=== PATIENT | male | born 1945 | race Caucasian/White ===

== ENCOUNTER 2018-11-28 09:58 | Emergency (ER) | payer MEDICARE ==
--- NOTE | 2018-11-28 10:12 | PHYS DOC ---
Past Medical History Past Medical History: CAD, Hypertension Past Surgical History: Coronary Bypass Surgery Additional Past Surgical Histo: AORTIC VALVE PIG VALVE Adult General Chief Complaint Chief Complaint: NEURO SYMPTOMS/DEFICITS HPI HPI Patient is a 73 year old was brought here by EMS for evaluation of slurred speech, right side weakness, started at 9:30 am. Patient woke up this AM, was normal. He was outside walking the dog, he was holding on something then dropped it. His asked him what happened and he could not answer her. His speech was slurred. EMS was called to take him here for evaluation. Patient is on aspirin daily. He had aortic valve replacement, pig valve, 8 months ago. No recent operation, no vomiting, blood, no rectal bleeding. Review of Systems Review of Systems Constitutional: Denies fever or chills [] Eyes: Denies change in visual acuity, redness, or eye pain [] HENT: Denies nasal congestion or sore throat [] Respiratory: Denies cough or shortness of breath [] Cardiovascular: No additional information not addressed in HPI [] GI: Denies abdominal pain, nausea, vomiting, bloody stools or diarrhea [] : Denies dysuria or hematuria [] Musculoskeletal: Denies back pain or joint pain [] Integument: Denies rash or skin lesions [] Neurologic: NO HEADACHE. POSITIVE FOR RIGHT SIDE WEAKNESS, CONFUSION, FACIAL NUMBNESS, NOT ABLE TO SPEAK NORMALLY. Endocrine: Denies polyuria or polydipsia [] All other systems were reviewed and found to be within normal limits, except as documented in this note. Current Medications Current Medications Current Medications Medications (Trade) Dose Ordered Sig/Mara Start Time Stop Time Status Last Admin Dose Admin Alteplase, Recombinant 54.3 ml @ 54.3 mls/hr Q1H 11/28/18 10:56 11/28/18 11:55 Info (CONTRAST GIVEN -- Rx MONITORING) 1 each PRN DAILY PRN 11/28/18 10:45 11/30/18 10:44 Iohexol (Omnipaque 300 Mg/ml) 75 ml 1X ONCE 11/28/18 10:30 11/28/18 10:31 DC 11/28/18 10:55 75 ML Labetalol HCl (Normodyne Iv Push) 10 mg PRN Q10MIN PRN 11/28/18 10:45 Sodium Chloride 50 ml @ 0 mls/hr 1X ONCE 11/28/18 11:45 11/28/18 11:46 Allergies Allergies Allergies Coded Allergies Type Severity Reaction Last Updated Verified No Known Drug Allergies 11/28/18 No Physical Exam Physical Exam Constitutional: Well developed, well nourished, MILD acute distress, non-toxic appearance. [] HENT: Normocephalic, atraumatic, bilateral external ears normal, oropharynx moist, no oral exudates, nose normal. [] Eyes: PERRLA, EOMI, conjunctiva normal, no discharge. [] Neck: Normal range of motion, no tenderness, supple, no stridor. [] Cardiovascular:Heart rate regular rhythm, no murmur [] Lungs & Thorax: Bilateral breath sounds clear to auscultation [] Abdomen: Bowel sounds normal, soft, no tenderness, no masses, no pulsatile masses. [] Skin: Warm, dry, no erythema, no rash. [] Back: No tenderness, no CVA tenderness. [] Extremities: No tenderness, no cyanosis, no clubbing, ROM intact, no edema. [] Neurologic: Alert , awake. He was confused, not able to move right side, does not follow command, right side facial droop. Psychologic: Affect normal, judgement normal, mood normal. [] Current Patient Data Lab Values Laboratory Tests Test 11/28/18 10:09 11/28/18 10:16 White Blood Count 6.5 x10^3/uL (4.0-11.0) Red Blood Count 4.59 x10^6/uL (4.30-5.70) Hemoglobin 13.3 g/dL (13.0-17.5) Hematocrit 38.8 % (39.0-53.0) L Mean Corpuscular Volume 85 fL (79-100) Mean Corpuscular Hemoglobin 29 pg (25-35) Mean Corpuscular Hemoglobin Concent 34 g/dL (31-37) Red Cell Distribution Width 13.3 % (11.5-14.5) Platelet Count 192 x10^3/uL (140-400) Neutrophils (%) (Auto) 53 % (31-73) Lymphocytes (%) (Auto) 34 % (24-48) Monocytes (%) (Auto) 10 % (0-9) H Eosinophils (%) (Auto) 2 % (0-3) Basophils (%) (Auto) 1 % (0-3) Neutrophils # (Auto) 3.5 x10^3uL (1.8-7.7) Lymphocytes # (Auto) 2.2 x10^3/uL (1.0-4.8) Monocytes # (Auto) 0.6 x10^3/uL (0.0-1.1) Eosinophils # (Auto) 0.2 x10^3/uL (0.0-0.7) Basophils # (Auto) 0.0 x10^3/uL (0.0-0.2) Prothrombin Time 14.6 SEC (11.7-14.0) H Prothrombin Time INR 1.2 (0.8-1.1) H PTT 28 SEC (24-38) Sodium Level 143 mmol/L (136-145) Potassium Level 3.8 mmol/L (3.5-5.1) Chloride Level 106 mmol/L (98-107) Carbon Dioxide Level 29 mmol/L (21-32) Anion Gap 8 (6-14) 18 mmol/L (6-14) H Blood Urea Nitrogen 16 mg/dL (8-26) Creatinine 1.1 mg/dL (0.7-1.3) Estimated GFR (Cockcroft-Gault) 65.8 BUN/Creatinine Ratio 15 (6-20) Glucose Level 102 mg/dL (70-99) H 101 mg/dL (70-99) H Calcium Level 9.1 mg/dL (8.5-10.1) Total Bilirubin 1.0 mg/dL (0.2-1.0) Aspartate Amino Transferase (AST) 24 U/L (15-37) Alanine Aminotransferase (ALT) 26 U/L (16-63) Alkaline Phosphatase 82 U/L (46-116) Troponin I Quantitative < 0.017 ng/mL (0.000-0.055) Total Protein 6.5 g/dL (6.4-8.2) Albumin 3.6 g/dL (3.4-5.0) Albumin/Globulin Ratio 1.2 (1.0-1.7) POC Hemoglobin 12.2 g/dL (14-18) L POC Hematocrit 36 % (37-52) L POC Sodium 143 mmol/L (135-145) POC Potassium 3.7 mmol/L (3.5-5.0) POC Chloride 105 mmol/L (98-110) POC Total CO2 25 mmol/L (23-32) POC Blood Urea Nitrogen 15 mg/dL (8-26) POC Creatinine 0.9 mg/dL (0.5-1.4) POC Ionized Calcium (Roverto) 1.19 mmol/L (1.13-1.32) Laboratory Tests 11/28/18 10:09 Laboratory Tests 11/28/18 10:09 11/28/18 10:16 EKG EKG EKG: RATE OF 70 BPM, NO STEMI. SINUS RHYTHM. Radiology/Procedures Radiology/Procedures [][facility] [address] [place], [place] [id number] IMAGING REPORT Signed PATIENT: MARNIE VALLES ACCOUNT: [id number] : 1945 LOCATION: ER AGE: 73 SEX: M EXAM STATUS: REG ER ORD. PHYSICIAN: SADIE FLYNN DO REASON: code stroke PROCEDURE: CT CODE STROKE HEAD WO CT CODE STROKE HEAD WO History: Expressive aphasia Comparison: None. Technique: Noncontrast CT imaging was performed of the head. Exposure: One or more of the following individualized dose reduction techniques were utilized for this examination: 1. Automated exposure control 2. Adjustment of the mA and/or kV according to patient size 3. Use of iterative reconstruction technique. Findings: No acute extra-axial or parenchymal hemorrhage is identified. There is no significant intra-axial mass effect, midline shift, or extra-axial fluid collection. The mak-white differentiation of the major vascular territories is preserved. Ventricular size is within normal limits. There is mumk-to-whtedfmf supratentorial atrophy somewhat greater of the frontal lobes. The mastoid air cells and the visualized paranasal sinuses are aerated. No acute calvarial abnormality is identified. There is some hyperdensity of the left middle cerebral artery such as of the M2 segments. There is atherosclerotic calcification bilateral carotid siphons. Impression: 1. There is no evidence of acute intracranial hemorrhage. There is some hyperdensity in the distribution of left middle cerebral artery, could be due to thromboembolism. FOR INTERNAL CODING PURPOSES Critical result: Findings discussed with SADIE FLYNN at 11/28/2018 10:05 AM. RESULT CODE: (C) [facility] [address] [place] [address] IMAGING REPORT Signed PATIENT: MARNIE VALLES ACCOUNT: [id number] : 1945 LOCATION: ER AGE: 73 SEX: M EXAM STATUS: REG ER ORD. PHYSICIAN: SADIE FLYNN DO REASON: SLURRED SPEECH, EXPRESSIVE APHASIA, RIGHT SIDE WEAKNESS PROCEDURE: CTA HEAD/NECK - CODE STROKE CTA of the head and neck with contrast, 11/28/2018: HISTORY: Slurred speech, aphasia, right-sided weakness Multidetector CT imaging was performed following an IV bolus injection of iodinated contrast material. Multiplanar reconstructions were produced including 3-D reconstructions and MIP images. There is mild calcific plaquing of the thoracic aorta. No significant stenosis is seen at the cervicocephalic arterial origins. The common carotid arteries are widely patent. There is moderate calcific plaquing at the left carotid bifurcation. There is only mild associated narrowing of the proximal left internal carotid artery. The left internal carotid artery in the upper neck is widely patent. There is calcific plaquing involving its cavernous segment without evidence of high-grade stenosis. The left anterior cerebral artery and its major branches are unremarkable. There is a patent posterior communicating artery on the left. There is abrupt occlusion of the left middle cerebral artery laterally just distal to the take off of 2 small arterial branches. This appears to involve the proximal M2 segment. On the right, there is mild calcific plaquing at the carotid bifurcation without significant luminal narrowing. The right internal carotid artery in the upper neck is widely patent. There is calcific plaquing involving its cavernous segment without evidence of high-grade stenosis. The right middle cerebral artery and its major branches are unremarkable. The A1 segment of the right anterior cerebral artery is small but patent. There is a prominent posterior communicating artery on the right. Both vertebral arteries in the neck are patent with dominance of the left vertebral artery. The basilar artery is patent but small. Much of the posterior cerebral blood supply appears to arise from prominent posterior communicating arteries. The posterior cerebral arteries and their major branches are unremarkable. IMPRESSION: 1. Mild to moderate calcific plaquing at both carotid bifurcations without significant stenosis. 2. Left middle cerebral artery occlusion at the proximal M2 level as described above. 3. Prominent posterior communicating arteries bilaterally. Note: The findings were called to personnel in the [facility] ER at 10:50 AM on 11/28/2018. PQRS Compliance Statement: One or more of the following individualized dose reduction techniques were utilized for this examination: 1. Automated exposure control 2. Adjustment of the mA and/or kV according to patient size 3. Use of iterative reconstruction technique Electronically signed by: Con Rand MD (11/28/2018 11:05 AM) [facility] DICTATED and SIGNED BY: CON RAND MD DATE: 11/28/18 1037 Course & Med Decision Making Course & Med Decision Making Pertinent Labs and Imaging studies reviewed. (See chart for details) Discussed with Neurologist at 10:35 am, Dr. Al (PAGED AT 10:12 AM), operations agent neurologist, recommended to transfer patient to [facility] OR . Family requested [facility]. Discussed with Neurologist at [facility], Dr. Mathur, recommended to keep blood pressure below 185 SYSTOLIC FOR 15 MINUTES then administer iv Tpa, agreed to accepted patient for transfer to [facility]. Dr. Colon, transfer physician at [facility] accepted patient. Patient's neurological symptoms improved prior to tPA was given. He was still aphasic with right side facial droop. IV tPA was given. Patient will be transferred to [facility] for clot retrieval. Dragon Disclaimer Dragon Disclaimer This electronic medical record was generated, in whole or in part, using a voice recognition dictation system. Departure Departure Impression: Primary Impression: Acute ischemic cerebrovascular accident (CVA) involving left middle cerebral artery territory Disposition: 02 TRANSFER [facility]) Condition: IMPROVED Referrals: UNKNOWN PCP NAME (PCP) SADIE FLYNN DO Nov 28, 2018 10:12
[2018-11-28 10:19] LABS: BASO % 1 % (0-3); EOS # 0.2 x10^3/uL (0.0-0.7); EOS % 2 % (0-3); HEMATOCRIT 38.8 % (39.0-53.0); HEMOGLOBIN 13.3 g/dL (13.0-17.5); LYMPH # 2.2 x10^3/uL (1.0-4.8); LYMPH % 34 % (24-48); MEAN CORPUSCULAR HEMOGLOBIN 29 pg (25-35); MEAN CORPUSCULAR HGB CONC 34 g/dL (31-37); MEAN CORPUSCULAR VOLUME 85 fL (79-100); MONO # 0.6 x10^3/uL (0.0-1.1); MONO % 10 % (0-9); NEUT # 3.5 x10^3uL (1.8-7.7); NEUT % 53 % (31-73); PLATELET COUNT 192 x10^3/uL (140-400); RED BLOOD COUNT 4.59 x10^6/uL (4.30-5.70); RED CELL DISTRIBUTION WIDTH 13.3 % (11.5-14.5); WHITE BLOOD COUNT 6.5 x10^3/uL (4.0-11.0)
[2018-11-28 10:21] LABS: CREATININE ISTAT 0.9 mg/dL (0.5-1.4); HEMOGLOBIN ISTAT 12.2 g/dL (14-18); ION CA ISTAT 1.19 mmol/L (1.13-1.32); POTASSIUM ISTAT 3.7 mmol/L (3.5-5.0)
[2018-11-28 10:28] LABS: PROTHROMBIN TIME PATIENT 14.6 SEC (11.7-14.0)
[2018-11-28 10:29] LABS: CALCIUM 9.1 mg/dL (8.5-10.1); CREATININE 1.1 mg/dL (0.7-1.3); GFR 65.8; POTASSIUM 3.8 mmol/L (3.5-5.1)
[2018-11-28] MEDS ORDERED: IOHEXOL 300 MG/ML 100ML VIAL. IV ONE (10:30)
[2018-11-28 10:35] LABS: ALBUMIN 3.6 g/dL (3.4-5.0); ALBUMIN/GLOBULIN RATIO 1.2 (1.0-1.7); TOTAL PROTEIN 6.5 g/dL (6.4-8.2)
--- NOTE | 2018-11-28 10:35 | PHYS DOC ---
NIHSS Stroke Scale NIH Stroke Scale: NIH Stroke Scale Response (Comments) Value Level of Consciousness: 0 Alert/Responsive 0 LOC Questions: 2 Answers neither correct 2 LOC Commands: 0 Performs both tasks 0 Best Gaze: 0 Normal 0 Visual: 0 No visual loss 0 Facial Palsy: 1 Minor paralysis (14) 1 Motor - Left Arm 1 Drifts, but can hold 1 Motor - Right Arm 1 Drifts but can hold 1 Motor - Left Leg 1 Drift but can hold 1 Motor: Right Leg 4 No movement 4 Limb Ataxia: 1 One limb 1 Sensory: 1 Mid to moderate loss 1 Best Language: 2 Severe aphasia 2 Dysathria: 1 Mild to moderate 1 Extinction and Inattention: 1 One sensory modality 1 Total 16 SADIE FLYNN DO Nov 28, 2018 10:35
[2018-11-28] MEDS ORDERED: CONTRAST GIVEN. MC PRN (10:45)
[2018-11-28] MEDS ORDERED: LABETALOL 20 MG/4 ML DISP.SYRIN. IVP PRN (10:45)
[2018-11-28] MEDS ORDERED: ALTEPLASE 6 MG IV ONE (10:55)
[2018-11-28] MEDS ORDERED: ALTEPLASE IV SCH ×2 (10:56)
--- NOTE | 2018-11-28 10:58 | PHYS DOC ---
NIHSS Stroke Scale NIH Stroke Scale: NIH Stroke Scale Response (Comments) Value Level of Consciousness: 0 Alert/Responsive 0 LOC Questions: 1 Answers one correctly 1 LOC Commands: 0 Performs both tasks 0 Best Gaze: 0 Normal 0 Visual: 0 No visual loss 0 Facial Palsy: 1 Minor paralysis 1 Motor - Left Arm 0 No drift 0 Motor - Right Arm 0 No drift 0 Motor - Left Leg 0 No drift 0 Motor: Right Leg 0 No drift 0 Limb Ataxia: 0 Absent 0 Sensory: 1 Mid to moderate loss 1 Best Language: 1 Mild to mod aphasia 1 Dysathria: 1 Mild to moderate 1 Extinction and Inattention: 0 Normal 0 Total 5 SADIE FLYNN DO Nov 28, 2018 10:58
--- NOTE | 2018-11-28 11:07 | EKG ---
[facility] [address] [place] [address] Test Date: 2018-11-28 Test Time: 10:35:12 Pat Name: MARNIE VALLES Department: Room: Gender: M [employer] Hand: : 1945 Requested By: SADIE FLYNN Order Number: [id number] Reading MD: Kumar Hightower Measurements Intervals [place] Rate: 70 P: 38 WI: 150 QRS: -34 QRSD: 104 T: 41 QT: 394 QTc: 428 Interpretive Statements SINUS RHYTHM ABNORMAL LEFT AXIS DEVIATION LEFT ANTERIOR FASCICULAR BLOCK QRS(T) CONTOUR ABNORMALITY CONSIDER ANTEROSEPTAL MYOCARDIAL DAMAGE ABNORMAL ECG RI6.01 No previous ECG available for comparison Electronically Signed On 12-03-2018 9:29:22 SHOW WORKER by Kumar Hightower
--- NOTE | 2018-11-28 11:10 | RAD ---
CTA of the head and neck with contrast, 11/28/2018: HISTORY: Slurred speech, aphasia, right-sided weakness Multidetector CT imaging was performed following an IV bolus injection of iodinated contrast material. Multiplanar reconstructions were produced including 3-D reconstructions and MIP images. There is mild calcific plaquing of the thoracic aorta. No significant stenosis is seen at the cervicocephalic arterial origins. The common carotid arteries are widely patent. There is moderate calcific plaquing at the left carotid bifurcation. There is only mild associated narrowing of the proximal left internal carotid artery. The left internal carotid artery in the upper neck is widely patent. There is calcific plaquing involving its cavernous segment without evidence of high-grade stenosis. The left anterior cerebral artery and its major branches are unremarkable. There is a patent posterior communicating artery on the left. There is abrupt occlusion of the left middle cerebral artery laterally just distal to the take off of 2 small arterial branches. This appears to involve the proximal M2 segment. On the right, there is mild calcific plaquing at the carotid bifurcation without significant luminal narrowing. The right internal carotid artery in the upper neck is widely patent. There is calcific plaquing involving its cavernous segment without evidence of high-grade stenosis. The right middle cerebral artery and its major branches are unremarkable. The A1 segment of the right anterior cerebral artery is small but patent. There is a prominent posterior communicating artery on the right. Both vertebral arteries in the neck are patent with dominance of the left vertebral artery. The basilar artery is patent but small. Much of the posterior cerebral blood supply appears to arise from prominent posterior communicating arteries. The posterior cerebral arteries and their major branches are unremarkable. IMPRESSION: 1. Mild to moderate calcific plaquing at both carotid bifurcations without significant stenosis. 2. Left middle cerebral artery occlusion at the proximal M2 level as described above. 3. Prominent posterior communicating arteries bilaterally. Note: The findings were called to personnel in the [facility] ER at 10:50 AM on 11/28/2018. PQRS Compliance Statement: One or more of the following individualized dose reduction techniques were utilized for this examination: 1. Automated exposure control 2. Adjustment of the mA and/or kV according to patient size 3. Use of iterative reconstruction technique Electronically signed by: Con Rand MD (11/28/2018 11:05 AM) [facility]
[2018-11-28 11:45] VITALS: BP 143/78
[2018-11-28] MEDS ORDERED: IV NORMAL SALINE 50ML 50 ML IV ONE (11:45)
== END 2018-11-28 11:52 | disposition short-term general hospital (02) ==
LOC: ER 09:58
DX: I63.9 Cerebral infarction, unspecified (principal); R29.810 Facial weakness; R47.81 Slurred speech; I10 Essential (primary) hypertension; I25.10 Atherosclerotic heart disease of native coronary artery without angina pectoris; Z95.5 Presence of coronary angioplasty implant and graft
CPT/HCPCS: 36415; 37195; 70450; 70496; 70498; 80047; 80053; 84484; 85025; 85610; 85730; 93005; 96374; 99285; J2997; J3490; Q9967

== ENCOUNTER → 2019-08-22 | Outpatient (CLI) | payer MEDICARE ==
--- NOTE | 2019-08-22 17:15 | KCIC ---
Examination: MRI of the left knee without contrast HISTORY: History of left knee pain COMPARISON: None available Technique: Multiplanar, multisequence MR imaging of the left knee was performed without contrast. FINDINGS: The anterior cruciate ligament, posterior cruciate ligament appear intact. There is mild blunting of the posterior horn of the medial meniscus at the junction of the body likely a small degenerative tear. The lateral meniscus appears intact. The medial collateral ligament appears intact. Lateral collateral ligamentous complex including the fibular collateral ligament, biceps femoris tendon, popliteus tendon appear intact. The extensor mechanism appears intact. There is deep fissuring of cartilage identified in the medial, lateral, patellofemoral compartments. The medial retinaculum, lateral retinaculum appears intact. Small knee joint effusion is identified. Tiny popliteal cyst identified. The medial retinaculum, lateral and rectum appear intact. Moderate joint space loss identified in the medial, lateral, patellofemoral compartments. IMPRESSION: 1. Probable small degenerative tear posterior horn of the medial meniscus. 2. Moderate tricompartmental degenerative changes. 3. Grade II chondromalacia medial, lateral, patellofemoral compartments. Electronically signed by: Juan Cortez MD (08/22/2019 5:11 PM) [id number]
== END | disposition home or self-care (01) ==
LOC: KCIC MRI 16:03
PROVIDERS: ATTEND Nurse Practitioner Family
DX: M94.262 Chondromalacia, left knee (principal); M17.12 Unilateral primary osteoarthritis, left knee; M71.22 Synovial cyst of popliteal space [Baker], left knee; M25.462 Effusion, left knee
CPT/HCPCS: 73721